=== PATIENT | female | born 1980 | race Caucasian/White ===

== ENCOUNTER 2020-11-23 15:53 | Emergency (ER) | payer OTHER ==
[~2020-11-23] VITALS: Ht 170.2 cm; Wt 88.6 kg
[2020-11-23 16:14] VITALS: BP 189/109
[2020-11-23] MEDS ORDERED: CEPH250T PO (16:43)
[2020-11-23] MEDS ORDERED: SULF1TAB45 PO (16:43)
[2020-11-23] MEDS ORDERED: MUPI22OI30 TOP (17:02)
== END 2020-11-23 17:32 | disposition home or self-care (01) ==
LOC: ER 15:55
DX: S01.80XA Unspecified open wound of other part of head, initial encounter (principal); F41.9 Anxiety disorder, unspecified; Z79.2 Long term (current) use of antibiotics; Z79.899 Other long term (current) drug therapy; Z91.048 Other nonmedicinal substance allergy status; X58.XXXA Exposure to other specified factors, initial encounter; Y93.89 Activity, other specified; Y92.89 Other specified places as the place of occurrence of the external cause; Y99.8 Other external cause status
CPT/HCPCS: 87070; 99283

== ENCOUNTER 2021-03-09 08:06 | Outpatient (CLI) | payer BC ==
[~2021-03-09 08:06] MED LIST: CEPH250T PO; IBUP-24 PO; SIME80TA15 PO
[2021-03-09 08:37] LABS: BASOPHILS % (AUTO) 0.7 % (0-1); EOSINOPHILS % (AUTO) 0.3 % (0-6); HEMATOCRIT 38.4 % (35.0-45.0); LYMPHOCYTES # (AUTO) 1.5 X10'3 (1.1-4.8); LYMPHOCYTES % (AUTO) 27.8 % (21-51); MEAN CORPUSCULAR HEMOGLOBIN 30.8 PG (27.0-31.0); MEAN CORPUSCULAR HGB CONC 33.7 g/dL (33.0-36.5); MEAN CORPUSCULAR VOLUME 91.3 FL (78-98); MEAN PLATELET VOLUME 6.4 FL (7.4-10.4); MONOCYTES # (AUTO) 0.4 X10'3 (0-0.9); MONOCYTES % (AUTO) 6.7 % (2-12); NEUTROPHILS # (AUTO) 3.4 X10'3 (1.8-7.7); NEUTROPHILS % (AUTO) 64.5 % (42-75); PLATELET COUNT 306 X10'3 (140-440); RED BLOOD COUNT 4.21 X10'6 (4.20-5.60); RED CELL DISTRIBUTION WIDTH 13.8 % (11.5-14.5); WHITE BLOOD COUNT 5.3 X10'3 (4.5-11.0)
[2021-03-09 09:04] LABS: CHLORIDE 107 MMOL/L (99-107); GLUCOSE 101 MG/DL (70-104); POTASSIUM 4.4 MMOL/L (3.5-5.1); SODIUM 142 MMOL/L (135-145); TOTAL CARBON DIOXIDE 26.5 MMOL/L (24-32)
[2021-03-09 09:05] LABS: ALANINE AMINOTRANSFERASE 14 U/L (12-78); ALBUMIN 3.4 G/DL (3.4-5.0); ALBUMIN/GLOBULIN RATIO 0.9 (1.1-1.5); ALKALINE PHOSPHATASE 79 IU/L (46-116); ANION GAP 9 (8-16); ASPARTATE AMINO TRANSFERASE 14 U/L (10-37); BILIRUBIN,TOTAL 0.2 MG/DL (0.1-1.0); BLOOD UREA NITROGEN 9 MG/DL (7-18); BUN/CREATININE RATIO 10.7 (6.6-38.0); CALCIUM 8.5 MG/DL (8.5-10.1); CHOL/HDL RATIO 1.9 (0.00-4.99); CHOLESTEROL 194 MG/DL (0-200); CREATININE 0.84 MG/DL (0.40-0.90); HDL CHOLESTEROL 102 MG/DL (35-60); LDL CHOLESTEROL 72 MG/DL (50-100); TOTAL PROTEIN 7.1 G/DL (6.4-8.2); TRIGLYCERIDES 66 MG/DL (20-135); eGFR 75 ML/MIN
== END 2021-03-09 23:59 | disposition home or self-care (01) ==
LOC: RAD 08:06
PROVIDERS: ATTEND Family Medicine
DX: Z30.9 Encounter for contraceptive management, unspecified (principal)
CPT/HCPCS: 36415; 76830; 80053; 80061; 84402; 84403; 84439; 84443; 85025; 93976

== ENCOUNTER 2021-04-19 07:38 | Outpatient (CLI) | payer BC ==
[2021-04-19 09:02] LABS: BASOPHILS % (AUTO) 0.3 % (0-1); EOSINOPHILS % (AUTO) 0.7 % (0-6); HEMATOCRIT 37.1 % (35.0-45.0); HEMOGLOBIN 12.7 g/dl (12.0-16.0); LYMPHOCYTES # (AUTO) 1.3 X10'3 (1.1-4.8); LYMPHOCYTES % (AUTO) 29.4 % (21-51); MEAN CORPUSCULAR HGB CONC 34.2 g/dL (33.0-36.5); MEAN CORPUSCULAR VOLUME 90.9 FL (78-98); MONOCYTES # (AUTO) 0.3 X10'3 (0-0.9); MONOCYTES % (AUTO) 7.7 % (2-12); NEUTROPHILS # (AUTO) 2.8 X10'3 (1.8-7.7); NEUTROPHILS % (AUTO) 61.9 % (42-75); PLATELET COUNT 254 X10'3 (140-440); RED BLOOD COUNT 4.09 X10'6 (4.20-5.60); RED CELL DISTRIBUTION WIDTH 13.4 % (11.5-14.5); WHITE BLOOD COUNT 4.5 X10'3 (4.5-11.0)
[2021-04-19 09:27] LABS: % IRON SATURATION 13 % (11-46); IRON 51 UG/DL (49-151); TOTAL IRON BINDING CAPACITY 397 UG/DL (259-388)
[2021-04-19 09:38] LABS: ALANINE AMINOTRANSFERASE 22 U/L (12-78); ALBUMIN 3.2 G/DL (3.4-5.0); ALBUMIN/GLOBULIN RATIO 0.8 (1.1-1.5); ALKALINE PHOSPHATASE 64 IU/L (46-116); ANION GAP 10 (8-16); ASPARTATE AMINO TRANSFERASE 12 U/L (10-37); BILIRUBIN,TOTAL 0.2 MG/DL (0.1-1.0); BLOOD UREA NITROGEN 14 MG/DL (7-18); BUN/CREATININE RATIO 17.5 (6.6-38.0); CALCIUM 8.4 MG/DL (8.5-10.1); CHLORIDE 105 MMOL/L (99-107); CHOL/HDL RATIO 1.9 (0.00-4.99); CHOLESTEROL 173 MG/DL (0-200); CREATINE KINASE 36 U/L (26-192); FERRITIN 24 NG/ML (8-252); GLUCOSE 104 MG/DL (70-104); HDL CHOLESTEROL 93 MG/DL (35-60); LACTATE DEHYDROGENASE 65 U/L (81-234); LDL CHOLESTEROL 79 MG/DL (50-100); PHOSPHORUS 3.2 MG/DL (2.3-4.5); POTASSIUM 4.1 MMOL/L (3.5-5.1); SODIUM 140 MMOL/L (135-145); TOTAL CARBON DIOXIDE 25.1 MMOL/L (24-32); TRIGLYCERIDES 60 MG/DL (20-135); eGFR 79 ML/MIN
[2021-04-20 12:19] LABS: C-PEPTIDE, SERUM 2.2 ng/mL (1.1-4.4); FSH, SERUM 1.4 mIU/mL (.); HBSAG SCREEN Negative (Negative); HEP A AB, IGM Negative (Negative); HEPATITIS C ANTIBODY <0.1 s/co ratio (0.0-0.9); LUTEINIZING HORMONE 0.8 mIU/mL (.); MICROALB/CRT, RATIO <12 mg/g creat (0-29); THYROID PEROXIDASE AB 39 IU/mL (0-34); TRANSFERRIN 283 mg/dL (192-364)
== END 2021-04-19 23:59 | disposition home or self-care (01) ==
LOC: LAB 07:38
PROVIDERS: ATTEND Family Medicine
DX: F32.9 Major depressive disorder, single episode, unspecified (principal); I10 Essential (primary) hypertension; R29.818 Other symptoms and signs involving the nervous system; R53.83 Other fatigue; R00.8 Other abnormalities of heart beat; M54.50 Low back pain, unspecified; N94.6 Dysmenorrhea, unspecified; N30.10 Interstitial cystitis (chronic) without hematuria; G47.00 Insomnia, unspecified; N93.8 Other specified abnormal uterine and vaginal bleeding; D50.0 Iron deficiency anemia secondary to blood loss (chronic); N91.2 Amenorrhea, unspecified; K21.9 Gastro-esophageal reflux disease without esophagitis; E55.9 Vitamin D deficiency, unspecified; Z72.89 Other problems related to lifestyle
CPT/HCPCS: 36415; 80053; 80061; 80074; 82043; 82306; 82330; 82550; 82570; 82607; 82728; 82746; 83001; 83002; 83525; 83540; 83550; 83615; 83735; 83921; 83970; 84100; 84402; 84403; 84425; 84439; 84443; 84466; 84550; 84681; 85025; 85651; 86140; 86376

== ENCOUNTER 2022-10-01 11:19 | Outpatient (CLI) | payer BC ==
[2022-10-01 12:11] LABS: BASOPHILS % (AUTO) 0.6 % (0-1); EOSINOPHILS # (AUTO) 0.1 X10'3 (0-0.9); EOSINOPHILS % (AUTO) 1.5 % (0-6); HEMATOCRIT 36.6 % (35.0-45.0); HEMOGLOBIN 12.3 g/dl (12.0-16.0); LYMPHOCYTES # (AUTO) 1.9 X10'3 (1.1-4.8); LYMPHOCYTES % (AUTO) 34.7 % (21-51); MEAN CORPUSCULAR HEMOGLOBIN 29.8 PG (27.0-31.0); MEAN CORPUSCULAR HGB CONC 33.6 g/dL (33.0-36.5); MEAN CORPUSCULAR VOLUME 88.6 FL (78-98); MEAN PLATELET VOLUME 6.7 FL (7.4-10.4); MONOCYTES # (AUTO) 0.4 X10'3 (0-0.9); MONOCYTES % (AUTO) 7.8 % (2-12); NEUTROPHILS % (AUTO) 55.4 % (42-75); PLATELET COUNT 253 X10'3 (140-440); RED BLOOD COUNT 4.13 X10'6 (4.20-5.60); RED CELL DISTRIBUTION WIDTH 14.1 % (11.5-14.5); WHITE BLOOD COUNT 5.5 X10'3 (4.5-11.0)
[2022-10-01 12:36] LABS: ALANINE AMINOTRANSFERASE 59 U/L (12-78); ALBUMIN 3.6 G/DL (3.4-5.0); ALKALINE PHOSPHATASE 105 IU/L (46-116); ANION GAP 7 (8-16); ASPARTATE AMINO TRANSFERASE 20 U/L (10-37); BILIRUBIN,TOTAL 0.3 MG/DL (0.1-1.0); BLOOD UREA NITROGEN 12 MG/DL (7-18); BUN/CREATININE RATIO 15.8 (10.0-20.0); CHLORIDE 101 MMOL/L (99-107); CHOL/HDL RATIO 2.5 (0.00-4.99); CHOLESTEROL 224 MG/DL (0-200); CREATININE 0.76 MG/DL (0.40-0.90); GLUCOSE 94 MG/DL (70-104); HDL CHOLESTEROL 89 MG/DL (35-60); LDL CHOLESTEROL 108 MG/DL (50-100); POTASSIUM 3.6 MMOL/L (3.5-5.1); SODIUM 137 MMOL/L (135-145); TOTAL CARBON DIOXIDE 28.9 MMOL/L (24-32); TOTAL PROTEIN 7.2 G/DL (6.4-8.2); TRIGLYCERIDES 61 MG/DL (20-135); eGFR 83 ML/MIN
[2022-10-02 18:48] LABS: MICROALB/CRT, RATIO <5 mg/g creat (0-29)
== END 2022-10-01 23:59 | disposition home or self-care (01) ==
LOC: LAB 11:19
PROVIDERS: ATTEND Family Medicine
DX: I10 Essential (primary) hypertension (principal); F41.8 Other specified anxiety disorders; R53.83 Other fatigue; Z13.220 Encounter for screening for lipoid disorders; Z68.33 Body mass index [BMI] 33.0-33.9, adult
CPT/HCPCS: 36415; 80053; 80061; 82043; 82570; 84439; 84443; 85025

== ENCOUNTER 2023-07-11 08:45 | Outpatient (CLI) | payer BC ==
[2023-07-11 09:15] LABS: BASOPHILS % (AUTO) 0.5 % (0-1); EOSINOPHILS # (AUTO) 0.1 X10'3 (0-0.9); EOSINOPHILS % (AUTO) 1.4 % (0-6); HEMATOCRIT 38.8 % (35.0-45.0); HEMOGLOBIN 12.8 g/dl (12.0-16.0); LYMPHOCYTES # (AUTO) 1.8 X10'3 (1.1-4.8); LYMPHOCYTES % (AUTO) 28.2 % (21-51); MEAN CORPUSCULAR HEMOGLOBIN 29.2 PG (27.0-31.0); MEAN CORPUSCULAR VOLUME 88.5 FL (78-98); MEAN PLATELET VOLUME 6.4 FL (7.4-10.4); MONOCYTES # (AUTO) 0.5 X10'3 (0-0.9); MONOCYTES % (AUTO) 8.7 % (2-12); NEUTROPHILS # (AUTO) 3.8 X10'3 (1.8-7.7); NEUTROPHILS % (AUTO) 61.2 % (42-75); PLATELET COUNT 299 X10'3 (140-440); RED BLOOD COUNT 4.38 X10'6 (4.20-5.60); RED CELL DISTRIBUTION WIDTH 13.7 % (11.5-14.5); WHITE BLOOD COUNT 6.2 X10'3 (4.5-11.0)
[2023-07-11 09:38] LABS: ALANINE AMINOTRANSFERASE 26 U/L (12-78); ALBUMIN 3.6 G/DL (3.4-5.0); ALKALINE PHOSPHATASE 87 IU/L (46-116); ANION GAP 9 (8-16); ASPARTATE AMINO TRANSFERASE 15 U/L (10-37); BILIRUBIN,TOTAL 0.6 MG/DL (0.1-1.0); BLOOD UREA NITROGEN 13 MG/DL (7-18); BUN/CREATININE RATIO 15.7 (10.0-20.0); CALCIUM 8.3 MG/DL (8.5-10.1); CHLORIDE 103 MMOL/L (99-107); CHOL/HDL RATIO 2.3 (0.00-4.99); CHOLESTEROL 217 MG/DL (0-200); CREATININE 0.83 MG/DL (0.40-0.90); FREE T4 (FREE THYROXINE) 0.77 NG/DL (0.73-1.40); GLUCOSE 105 MG/DL (70-104); HDL CHOLESTEROL 96 MG/DL (35-60); LDL CHOLESTEROL 93 MG/DL (50-100); POTASSIUM 3.8 MMOL/L (3.5-5.1); SODIUM 139 MMOL/L (135-145); TOTAL PROTEIN 7.2 G/DL (6.4-8.2); TRIGLYCERIDES 70 MG/DL (20-135); eGFR 75 ML/MIN
[2023-07-11 10:03] LABS: THYROID STIMULATING HORMONE 0.91 ulU/ml (0.34-4.50)
[2023-07-12 13:15] LABS: CREATININE, URINE 99.7 mg/dL (Not Estab.); MICROALBUMIN,U,RANDOM 4.5 ug/mL (Not Estab.)
[2023-07-12 23:47] LABS: HEMOGLOBIN A1C 5.7 % (4.5-6.2)
== END 2023-07-11 23:59 | disposition home or self-care (01) ==
LOC: LAB 08:45
PROVIDERS: ATTEND Family Medicine
DX: Z13.220 Encounter for screening for lipoid disorders (principal); I10 Essential (primary) hypertension; R53.83 Other fatigue; F41.8 Other specified anxiety disorders; Z68.33 Body mass index [BMI] 33.0-33.9, adult
CPT/HCPCS: 36415; 80053; 80061; 82043; 82570; 83036; 84439; 84443; 85025

== ENCOUNTER 2023-07-23 09:34 | Outpatient (CLI) | payer BC ==
[2023-07-23 11:10] LABS: BILIRUBIN,URINE NEGATIVE (Neg); CLARITY,URINE SLIGHTLY CLOUDY (Clear); COLOR,URINE YELLOW (Yellow); GLUCOSE, URINE NEGATIVE (Neg); KETONES,URINE NEGATIVE (Neg); LEUKOCYTE ESTERASE ,URINE NEGATIVE (Neg); NITRITES, URINE NEGATIVE (Neg); OCCULT BLOOD,URINE NEGATIVE (Neg); PH,URINE 5.5 (4.8-8.0); PROTEIN,URINE NEGATIVE (Neg); UROBILINOGEN,URINE 0.2 E.U/dL (0.2-1.0)
[2023-07-23 11:11] LABS: UA COLLECTION TYPE CLN CATCH MIDSTREAM
[2023-07-23 11:22] LABS: SQUAMOUS EPITHELIAL CELL,UR MANY /LPF (FEW)
[2023-07-23 11:26] LABS: BACTERIA,URINE 2+ /HPF (Neg); FINE GRANULAR CAST 0-3 /LPF (NEGATIVE)
[2023-07-23 11:28] LABS: MUCUS STRANDS FEW /LPF (Neg); RBC,URINE 0-2 /HPF (0-2)
[2023-07-23 11:30] LABS: WBC,URINE 0-4 /HPF (0-4)
[2023-07-23 11:31] LABS: TRANSITIONAL EPI CELLS,URINE FEW /HPF
[2023-07-23 12:02] LABS: FERRITIN 50 NG/ML (8-252)
[2023-07-23 12:25] LABS: % IRON SATURATION 15 % (11-46); IRON 48 UG/DL (49-151); TOTAL IRON BINDING CAPACITY 327 UG/DL (259-388)
[2023-07-23 13:13] LABS: RHEUM FACTOR QUAL REFLEX TITER NEGATIVE (Neg)
[2023-07-24 15:01] LABS: ANTINUCLEAR ANTIBODIES Negative (Negative); ESTRADIOL 87.6 pg/mL (.); FOLATE SERUM(FOLIC) 11.3 ng/mL (>3.0); PROGESTERONE 1.2 ng/mL (.); TESTOSTERONE, SERUM <3 ng/dL (4-50)
== END 2023-07-23 23:59 | disposition home or self-care (01) ==
LOC: RAD 09:34
PROVIDERS: ATTEND Physician Assistant
DX: M51.37 Other intervertebral disc degeneration, lumbosacral region (principal); M16.12 Unilateral primary osteoarthritis, left hip; M25.552 Pain in left hip; M54.42 Lumbago with sciatica, left side; N18.9 Chronic kidney disease, unspecified; E01.0 Iodine-deficiency related diffuse (endemic) goiter; E28.2 Polycystic ovarian syndrome; N94.6 Dysmenorrhea, unspecified; R53.82 Chronic fatigue, unspecified; W57.XXXA Bitten or stung by nonvenomous insect and other nonvenomous arthropods, initial encounter; R10.9 Unspecified abdominal pain; G89.29 Other chronic pain; Z83.2 Family history of diseases of the blood and blood-forming organs and certain disorders involving the immune mechanism; Y93.89 Activity, other specified; Y92.89 Other specified places as the place of occurrence of the external cause; Y99.8 Other external cause status
CPT/HCPCS: 36415; 72110; 73502; 81001; 82306; 82607; 82670; 82728; 82746; 83540; 83550; 84144; 84402; 84403; 85651; 86038; 86200; 86430; 86617; 87088

== ENCOUNTER 2023-07-24 13:50 | Outpatient (CLI) | payer BC | END 2023-07-24 23:59 | disposition home or self-care (01) | LOC: RAD 13:50 | PROVIDERS: ATTEND Physician Assistant | DX: N18.9 Chronic kidney disease, unspecified (principal); M25.552 Pain in left hip; M54.42 Lumbago with sciatica, left side; G89.29 Other chronic pain; E01.0 Iodine-deficiency related diffuse (endemic) goiter | CPT/HCPCS: 76536; 76770 ==

== ENCOUNTER 2024-02-29 01:16 | Emergency (ER) | payer BC ==
[~2024-02-29] VITALS: Ht 170.2 cm; Wt 90.0 kg
[2024-02-29 01:24] VITALS: BP 118/70; PULSE 86; RESP 15; O2SAT 98
[2024-02-29 02:13] LABS: CLARITY,URINE CLOUDY (Clear); COLOR,URINE ORANGE (Yellow)
[2024-02-29 02:26] LABS: UA COLLECTION TYPE CLN CATCH MIDSTREAM
[2024-02-29 02:43] LABS: BACTERIA,URINE 2+ /HPF (Neg); SQUAMOUS EPITHELIAL CELL,UR MODERATE /LPF (FEW)
[2024-02-29 02:44] LABS: WBC,URINE 50-100 /HPF (0-4)
[2024-02-29 02:45] LABS: RBC,URINE 0-2 /HPF (0-2)
[2024-02-29 03:40] LABS: URINE HCG NEGATIVE (NEG)
[2024-02-29] MEDS: cephalexin 250mg capsule PO ONE (04:22)
[2024-02-29] MEDS ORDERED: CEPH500C3 PO (04:23)
[2024-02-29] MEDS ORDERED: PHEN-716 PO (04:23)
[2024-02-29 04:25] VITALS: TEMP 98.5
== END 2024-02-29 04:27 | disposition home or self-care (01) ==
LOC: ER 01:16
DX: N30.90 Cystitis, unspecified without hematuria (principal); Z91.09 Other allergy status, other than to drugs and biological substances; Z79.1 Long term (current) use of non-steroidal anti-inflammatories (NSAID); Z79.2 Long term (current) use of antibiotics
CPT/HCPCS: 81001; 81025; 87077; 87088; 87186; 99283

== ENCOUNTER 2024-03-19 02:35 | Outpatient (CLI) | payer BC ==
[~2024-03-19 02:35] MED LIST changes: +PHEN-716 PO
[2024-03-19 04:58] LABS: ALANINE AMINOTRANSFERASE 20 U/L (12-78); ALBUMIN 3.9 G/DL (3.4-5.0); ALBUMIN/GLOBULIN RATIO 1.1 (1.1-1.5); ALKALINE PHOSPHATASE 73 IU/L (46-116); ANION GAP 7 (8-16); ASPARTATE AMINO TRANSFERASE 21 U/L (10-37); BILIRUBIN,TOTAL 0.2 MG/DL (0.1-1.0); BLOOD UREA NITROGEN 15 MG/DL (7-18); BUN/CREATININE RATIO 12.8 (10.0-20.0); CALCIUM 8.6 MG/DL (8.5-10.1); CHLORIDE 101 MMOL/L (99-107); CREATININE 1.17 MG/DL (0.40-0.90); GLUCOSE 76 MG/DL (70-104); POTASSIUM 3.1 MMOL/L (3.5-5.1); SODIUM 136 MMOL/L (135-145); TOTAL CARBON DIOXIDE 27.9 MMOL/L (24-32); TOTAL PROTEIN 7.6 G/DL (6.4-8.2); eGFR 50 ML/MIN
[2024-03-20 09:25] LABS: ESTRADIOL 52.5 pg/mL (.); FSH, SERUM 6.5 mIU/mL (.); PROGESTERONE 3.5 ng/mL (.); TESTOSTERONE, SERUM <3 ng/dL (4-50)
== END 2024-03-19 23:59 | disposition home or self-care (01) ==
LOC: LAB 02:35
PROVIDERS: ATTEND Physician Assistant
DX: E28.2 Polycystic ovarian syndrome (principal); R79.89 Other specified abnormal findings of blood chemistry; I10 Essential (primary) hypertension; E55.9 Vitamin D deficiency, unspecified
CPT/HCPCS: 36415; 80053; 82306; 82670; 83001; 83002; 84144; 84402; 84403

== ENCOUNTER 2024-09-10 13:22 | Outpatient (CLI) | payer BC ==
[2024-09-10 13:57] LABS: ALANINE AMINOTRANSFERASE 23 U/L (12-78); ALBUMIN 3.6 G/DL (3.4-5.0); ALBUMIN/GLOBULIN RATIO 1.1 (1.1-1.5); ALKALINE PHOSPHATASE 70 IU/L (46-116); ANION GAP 6 (8-16); ASPARTATE AMINO TRANSFERASE 17 U/L (10-37); BILIRUBIN,TOTAL 0.4 MG/DL (0.1-1.0); BLOOD UREA NITROGEN 6 MG/DL (7-18); BUN/CREATININE RATIO 6.7 (10.0-20.0); CALCIUM 8.8 MG/DL (8.5-10.1); CHLORIDE 105 MMOL/L (99-107); GLUCOSE 80 MG/DL (70-104); POTASSIUM 4.3 MMOL/L (3.5-5.1); SODIUM 139 MMOL/L (135-145); TOTAL CARBON DIOXIDE 28.5 MMOL/L (24-32); TOTAL PROTEIN 6.8 G/DL (6.4-8.2); eGFR 68 ML/MIN
== END 2024-09-10 23:59 | disposition home or self-care (01) ==
LOC: RAD 13:22
PROVIDERS: ATTEND Physician Assistant
DX: N18.31 Chronic kidney disease, stage 3a (principal)
CPT/HCPCS: 36415; 80053

== ENCOUNTER 2024-12-14 05:22 | Day surgery (SDC) | payer BC ==
[2024-12-08 10:58] LABS: MEAN PLATELET VOLUME 6.5 FL (7.4-10.4); RED CELL DISTRIBUTION WIDTH 13.4 % (11.5-14.5)
[2024-12-08 11:19] LABS: CREATININE 0.86 MG/DL (0.40-0.90); PRE OP ALT 24 U/L (30-65); PRE OP ANION GAP 7 (8-16); PRE OP AST 15 U/L (10-37); PRE OP BILIRUB, TOTAL 0.4 MG/DL (0.0-1.0); PRE OP GLUCOSE 101 MG/DL (70-104); PRE OP POTASSIUM 4.2 MMOL/L (3.4-5.1); PRE OP SODIUM 136 MMOL/L (135-145); TOTAL CARBON DIOXIDE 27.4 MMOL/L (24-32); eGFR 72 ML/MIN
[2024-12-08 11:28] LABS: HCG SERUM QL NEGATIVE
[~2024-12-14] VITALS: Ht 170.2 cm; Wt 86.5 kg
[2024-12-14] VITALS (7 sets, daily range): BP systolic 112–137; BP diastolic 74–86; PULSE 62–102; RESP 13–20; TEMP 97.2; O2SAT 98–100
[~2024-12-14 05:22] MED LIST changes: +BUPR-297 PO; -CEPH250T PO; +IBUP-1984 PO; +IBUP-1985 PO; +LOSA100T58 PO; +MULT-1085 PO; -PHEN-716 PO; +PROG100C11 PO; +QUET100T34; +SPIR25TA5 PO; +TEST60GE3 TOP; +TIRZ12.5 SQ
[2024-12-14] MEDS: ceFAZolin 2gm/dext,iso 50mL 50 ML IV ONE (05:35)
[2024-12-14] MEDS: ringers solution, lacted 1,000 ML IV SCH (06:00)
[2024-12-14] MEDS ORDERED: BUPIVAcaine/PF 2.5mg/ml (0.25%) 10ml vial ONE (06:47)
[2024-12-14] MEDS ORDERED: LIDOcaine 2% (20mg/ml) 5ml vial ONE (06:47)
[2024-12-14] MEDS ORDERED: morphine 4 MG/ML inj SYRINge IV PRN (07:20)
[2024-12-14] MEDS ORDERED: HYDROmorphone/PF 0.2 MG/ML SYRINGE IV PRN ×2 (07:20)
[2024-12-14] MEDS ORDERED: hydrALAZINE 20mg/ml inj. IV PRN (07:20)
[2024-12-14] MEDS ORDERED: labetalol 20mg/4ml (5mg/ml) syringe IV PRN (07:20)
[2024-12-14] MEDS ORDERED: ondansetron/PF 4mg/2ml inj IV PRN (07:20)
[2024-12-14] MEDS ORDERED: ringers solution, lacted 1,000 ML IV SCH (07:20)
[2024-12-14] MEDS ORDERED: acetaminophen 1,000mg/100ml IV 100 ML IV PRN (07:20)
[2024-12-14] MEDS ORDERED: midazolam 1 mg/ML 2ml injection ONE ×2 (07:25→07:41)
[2024-12-14] MEDS ORDERED: fentaNYL/PF 50MCG/1 ML 2ML syringe ONE (07:25)
[2024-12-14] MEDS ORDERED: propofol inj 20 ML IV ONE (07:41)
[2024-12-14] MEDS: BUPIVAcaine/PF 2.5mg/ml (0.25%) 10ml vial IJ ONE (07:47)
[2024-12-14] MEDS ORDERED: LIDOcaine 0.5% (5mg/ml) 50ml vial ONE (07:58)
--- NOTE | 2024-12-14 09:09 | OPERATIVE REPORT ---
Operative Report Providers to ~ Date of Procedure: Dec 14, 2024 Pre-Operative Diagnosis: Carpal and cubital tunnel syndrome left Post-Operative Diagnosis Left wrist carpal tunnel syndrome, left elbow cubital tunnel syndrome Procedure Performed Left wrist endoscopic carpal tunnel release, left ulnar neuroplasty at elbow with in-situ decompression Surgeon: Sandeep Anna MD Extension Service Specialist Done Anesthesiologist: Scooby Rodriguez Type of Anesthesia: Regional Findings: Estimated Blood Loss: None Specimen Removed: None Description of Procedure: The patient is a 44-year-old woman with carpal and cubital tunnel syndrome refractory to nonsurgical treatment. Surgery is indicated to relieve symptoms. Consent was obtained from the patient. Risks and benefits were discussed. Some of the risks include but are not limited to infection, bleeding, nerve or vessel damage, incomplete relief of symptoms and chronic pain. She agreed to proceed. After the block was given in the operating room and proper time-out procedure was observed. The arm was prepped and draped in usual manner. A transverse incision was made at the wrist crease ulnar to palmaris longus and a distally based U shaped flap was raised. The scope was placed in the carpal canal in line with the ring finger the cutting blade was deployed up against the underside of the ligament and the scope was drawn proximally dividing the ligament. The scope was removed the flap was transected and the fascia proximal to that was divided a short distance using the blunt scissor tips. The incision was irrigated and closed with nylon suture. An incision was made a posterior to the medial epicondyle of the elbow. Blunt dissection was done through the deeper tissues to the cubital tunnel. The nerve was palpated in the ulnar groove and unroofed at that level. The nerve was then decompressed and distance of 5 cm distal and proximal to the elbow decompressing of the nerve. The elbow was fully flexed and the nerve was stable in the ulnar groove. The incision was irrigated small bleeders were cauterized and the skin was closed with Vicryl in the subcutaneous tissue and Prolene on the skin. Marcaine was injected at both sites and sterile dressings were applied. The tourniquet was released the hand perfused well and the patient was taken to the recovery room in stable condition. SANDEEP ANNA Jr., MD Dec 14, 2024 09:09
== END 2024-12-14 09:10 | disposition home or self-care (01) ==
LOC: PAS 05:22
PROVIDERS: ATTEND Orthopaedic Surgery Hand Surgery
DX: G56.02 Carpal tunnel syndrome, left upper limb (principal); G56.22 Lesion of ulnar nerve, left upper limb; G47.30 Sleep apnea, unspecified; F31.9 Bipolar disorder, unspecified; F41.9 Anxiety disorder, unspecified; I12.9 Hypertensive chronic kidney disease with stage 1 through stage 4 chronic kidney disease, or unspecified chronic kidney disease; N18.2 Chronic kidney disease, stage 2 (mild); Z79.899 Other long term (current) drug therapy; Z72.89 Other problems related to lifestyle; Z98.890 Other specified postprocedural states; Z82.49 Family history of ischemic heart disease and other diseases of the circulatory system
CPT/HCPCS: 29848; 36415; 64718; 80053; 82948; 84703; 85025; J2003; J2250; J2704; J3010; J3490; J7030; J7120; Z7506; Z7512; A4215; A6449; A7000

== ENCOUNTER 2025-01-06 17:50 | Emergency (ER) | payer BC ==
[~2025-01-06] VITALS: Ht 170.2 cm; Wt 86.9 kg
[2025-01-06 17:52] VITALS: BP 131/76; PULSE 88; RESP 18; O2SAT 99
--- NOTE | 2025-01-06 18:19 | Physician Documentation ---
History of Present Illness ~ Chief Complaint: Mental Health Eval Stated Complaint: MH Time Seen by MD: 18:14 HPI Patient is a 44-year-old female that presents to the emergency department for evaluation of mental health concerns and stress overload. Reports that she was diagnosed with bipolar and has had what she feels like are multiple episodes of depression and shauna over the course of the last several months. Worse as she has had a failed relationship and difficulty at work adding to her stress level. She denies desire to harm herself or anyone else around her at this time. She reports that she would really like to speak with someone from the mental health team to find out about local resources and medication management. Reports that she sees a primary care provider for her medication management but she has been rescheduled multiple times and started over on her medication dosing which has very much delayed her progress. Medication Reconciliation Allergies: Coded Allergies: adhesive tape (Verified Allergy, Intermediate, BLISTERS, 03/13/21) Uncoded Allergies: TAPE (Allergy, Unknown, BLISTERS, 03/13/21) BANDAIDS Scheduled Bupropion HCl (Bupropion HCl), 1 TAB PO QAM, (Reported) Lorazepam (Ativan), 1 MG PO Q8H PRN ANXIETY Losartan Potassium (Losartan Potassium), 1 TAB PO DAILY, (Reported) Multivitamin (Multi Vitamin Daily), 1 TAB PO DAILY, (Reported) Progesterone,Micronized (Progesterone), 1 CAP PO HS, (Reported) Spironolactone (Spironolactone), 1 TAB PO DAILY, (Reported) Testosterone (Testosterone), 10 MG TOP DAILY, (Reported) Tirzepatide (Mounjaro), 12.5 MG SQ Q7D, (Reported) Scheduled PRN Ibuprofen (Advil), 200 MG PO PRN PRN for pain, (Reported) Ibuprofen (Ibuprofen), 1 TAB PO PRN PRN for pain, (Reported) Ibuprofen* (Motrin*), 1 TAB PO PRN PRN for pain, (Reported) Quetiapine Fumarate (Quetiapine Fumarate), 1 TAB HS PRN for sleep, (Reported) Simethicone (Simethicone), 1 TAB PO PRN PRN for BLOATING/GAS, (Reported) Review of Systems ROS As stated above in the HPI, otherwise all systems are reviewed and negative. Physical Exam Vital Signs: Temperature: 97.0, Source: Oral, Heart Rate: 88, Respiratory Rate: 18, BP: 131/76, Pulse Oximetry: 99, Weight: 86.900 Oxygen Flow Rate: 0 Physical Exam VITALS: Reviewed and as above. GENERAL: Alert, crying and exhibiting signs of emotional distress HEENT: Normocephalic, atraumatic, PERRL, EOMI, dry mucosa, no erythema RESPIRATORY: Lungs clear, normal breath sounds, no respiratory distress. CHEST: No accessory muscle use, no retractions CV: Regular rate, rhythm, no edema, no murmur, No: JVD GI: Soft, non-tender, bowels sounds present, no rebound, guarding, or rigidity BACK: No CVA tenderness, or swelling MUSCULOSKELETAL No deformities, no edema SKIN: Warm and dry, no rash NEURO: Oriented x4, No motor or sensory deficit PSYCH: Normal mood and affect, no agitation Progress Results/Orders Results/Orders Vital Signs 01/06/25 01/06/25 17:52 21:05 Temp 97.0 97.0 Pulse 88 Resp 18 B/P (MAP) 131/76 Pulse Ox 99 O2 Flow Rate 0 Medical Decision Making Findings This patient presents with symptoms consistent with an underlying psychiatric disorder, most likely depressin and anxiety at this time. Presentation not cons istent with acute organic causes to include delirium, dementia or drug induced disorders (acute ingestions or withdrawal; no evidence of toxidrome). Given the H&P, I suspect this patient is not suicidal/homicidal/gravely disabled not require psychiatric hold at this time. Mental health team was consulted evaluated the patient and provided her with resources for medication management and he her instructions regarding filing for FMLA for work. Mental health care provider the need for angiolytics for a couple of days until the patient can get in to see someone to adjust her medications. Departure Disposition: 01 HOME / SELF CARE / HOMELESS Impression: Primary Impression: Anxiety Additional Impression: Depression Condition: Stable Discharge Instructions: Generalized Anxiety Disorder, Adult, Medical Screening Exam Additional Instructions: You were evaluated in the emergency department for acute on chronic stress and anxiety. You were evaluated by the mental health team who provided you with resources for providers that can manage psychiatric medications and help provide you with resources to file for FMLA our work. Prescribed you angiolytics in the recommendation from the mental health team for a short time, please take them as prescribed. Follow-up with your primary care provider or the providers that were referred to you by the mental health team. Return to the emergency department if you have any worsening of her depression or anxiety any suicidal ideation, harm others or any other additional concerning symptoms that we have discussed your today. Referrals: NO PRIMARY CARE PROVIDER (PCP) Prescriptions Lorazepam (Ativan) 1 Mg Tablet 1 MG PO Q8H PRN ANXIETY for anxiety for 5 Days, #15 TAB Prov: WENDIE GARCIA 01/06/25 Education Educated: Patient Educated regarding: treatment, need for follow up Signature Scribe Signature: a Attestation: Scribed for Wendie Garcia by KVNG Young . 01/09/25 12:29 WENDIE GARCIA Jan 06, 2025 18:19
[2025-01-06] MEDS ORDERED: ATI1T PO (20:40)
[2025-01-06 21:05] VITALS: TEMP 97
== END 2025-01-06 21:06 | disposition home or self-care (01) ==
LOC: MERGE 17:51 → ER 17:51
DX: F41.9 Anxiety disorder, unspecified (principal); F32.A Depression, unspecified; Z88.8 Allergy status to other drugs, medicaments and biological substances
CPT/HCPCS: 99283

== ENCOUNTER 2025-01-07 11:54 | Outpatient (CLI) | payer BC ==
[~2025-01-07 11:54] MED LIST changes: +ATI1T PO
[2025-01-08 11:16] LABS: ESTRADIOL 116.0 pg/mL (.); FSH, SERUM 24.8 mIU/mL (.); LUTEINIZING HORMONE 24.2 mIU/mL (.); PROGESTERONE 4.9 ng/mL (.); TESTOSTERONE, SERUM 22 ng/dL (4-50)
== END 2025-01-07 23:59 | disposition home or self-care (01) ==
LOC: LAB 11:54 → MERGE 11:54 → LAB 23:59
PROVIDERS: ATTEND Physician Assistant
DX: E28.2 Polycystic ovarian syndrome (principal); F32.81 Premenstrual dysphoric disorder; R79.89 Other specified abnormal findings of blood chemistry
CPT/HCPCS: 36415; 82670; 83001; 83002; 84144; 84402; 84403

== ENCOUNTER 2025-03-18 10:08 | Outpatient (CLI) | payer BC ==
[~2025-03-18 10:08] MED LIST changes: -IBUP-1985 PO; +IBUP600T52 PO
[2025-03-19 08:17] LABS: TESTOSTERONE, SERUM 93 ng/dL (4-50)
[2025-03-21 19:14] LABS: TESTOSTERONE, FREE, DIRECT 1.0 pg/mL (0.0-4.2)
== END 2025-03-18 23:59 | disposition home or self-care (01) ==
LOC: RAD 10:08
PROVIDERS: ATTEND Physician Assistant
DX: R79.89 Other specified abnormal findings of blood chemistry (principal); E28.2 Polycystic ovarian syndrome; E56.9 Vitamin deficiency, unspecified; E01.0 Iodine-deficiency related diffuse (endemic) goiter; E53.9 Vitamin B deficiency, unspecified; Z13.29 Encounter for screening for other suspected endocrine disorder; E55.9 Vitamin D deficiency, unspecified
CPT/HCPCS: 36415; 82306; 82607; 82746; 84402; 84403; 84439; 84443